=== PATIENT | female | born 1975 | race Caucasian/White ===

== ENCOUNTER 2017-02-08 17:03 | Inpatient (IN) | payer MEDICAID ==
--- NOTE | 2017-02-08 17:08 | ED Physician Chart ---
Chief Complaint/HPI - Patient Information Date Seen:: 02/08/17 Time Seen:: 17:08 Chief Complaint:: altered level of consciousness History of Present Illness:: 41-year-old female, brought in by ambulance from home with acute, constant, severe, altered level of consciousness that has been going on since approximately 30-40 minutes prior to arrival and she was discovered by a bystander at her home to be altered. Apparently patient has associated ability to only respond to painful stimulus. Patient also has associated nausea and vomiting. Reportedly she had been drinking alcohol last night. History limited due to patient's altered level of consciousness History provided by EMS and EMS run sheet Historian:: EMS Review:: Nurse's Note Reviewed, EMS run form Reviewed Review of Systems - Review of Systems Other: Complete system review otherwise unremarkable except as noted in history of present illness. Past Medical History - Past Medical History Past Medical History: No significant medical hx Family History: None Social History: Non Smoker, Alcohol, Illicit Drug Use Surgical History: None Psychiatricy History: Other (anxiety and depression) Medication: Reviewed Family Medical History - Family Member Mother History Unknown: Yes Other Medical History: pt. unable to state due to ALOC Physical Exam - Physical Examination Other:: INITIAL VITAL SIGNS: Reviewed by me GENERAL: Patient is lying on gurney. She is GCS 11, ([id number]). Patient is dry heaving. HEAD: Head is normocephalic. No evidence of trauma. No scalp or facial swelling EYES: No scleral icterus bilaterally ENT: Oropharynx is clear of exudate and erythema NECK: Supple. No meningismus. No masses. No evidence of trauma. No cervical spine bony step-offs or crepitus to palpation RESPIRATORY: No tachypnea. Clear to auscultation bilaterally. CV: Regular rate and rhythm. No murmurs, rubs, or gallops ABDOMEN: Soft, non-distended. No masses BACK: No ecchymoses. No evidence of trauma EXTREMITIES: Normal to inspection and palpation. No deformity SKIN: Warm and dry. No obvious rash. No jaundice NEUROLOGIC: Face is symmetric. Withdraws to pain in all extremities Labs/Radiology/EKG Results - Lab Results Results: Lab Results 02/08/17 Range/Units 17:31 WBC 20.0 H (4.8-10.8) Th/cmm RBC 4.58 (3.80-5.10) Mil/cmm Hgb 14.4 (11.7-15.5) gm/dL Hct 42.5 (35.0-45.0) % MCV 92.8 (81-100) fl MCH 31.5 H (27.0-31.0) pg MCHC Differential 33.9 (28.0-36.0) pg RDW 12.7 (11.5-20.0) % Plt Count 330 (150-400) Th/cmm MPV 8.1 fl - Radiology Results Results: Single AP VIEW Portable Chest X-ray was interpreted independently and contemporaneously by Enrrique Boggs MD: No cardiomegaly Normal mediastinum No lung infiltrates No pneumothorax No soft tissue or bony abnormalities CT head without contrast per radiology NAD - EKG Interpretations Comments:: 12-lead EKG Interpretation by Enrrique Boggs MD: Sinus arrhythmia with ventricular rate of 72 beats per minute Normal axis Normal intervals No acute ST or T wave changes. No obvious STEMI Assessment - Assessment General Assessment: Critical Care Time: 30 minutes Treatments/Evaluations: Close monitoring and treatment of unstable vital signs, cardiorespiratory, and neurologic status, while maintaining tight balance of fluid, respiratory, and cardiac interventions. This time includes discussing the case with the patient and the patient's family. This time does not include all procedures stated elsewhere in this record. This time also includes reviewing old records, labs and radiological studies. This time includes examining and re-examining the patient. Additionally, this time also includes arranging care with admitting and consulting physicians. Critical Care Time: 30 minutes Excludes all billable procedures: Yes This condition life threatening/high prob of deterioration: Yes ED Septic Shock - . Is Septic Shock (SBP<90, OR Lactate>4 mmol\L) present?: No Reassessment (Disposition) - Reassessment Reassessment:: 41-year-old female presents altered from home. She arrived vomiting was responsive only to pain. He did regain consciousness slowly. She complained of acute migraine headache. Apparently she was drinking alcohol yesterday. Alcohol levels are negative and the blood today. Just complains of some burning epigastric pain. Lactic acid is greater than 3 and white count is 20, 000. She is septic. There is an unknown source. CT of the head and CT of the abdomen and pelvis are unremarkable for acute findings. We did give IV fluids and IV Rocephin. Also gave IV Protonix. We also gave IV Toradol, Compazine, Benadryl, Decadron. Migraine has resolved. Patient is now no longer vomiting. Discussed the case with the admitting physician. Patient admitted for further workup and treatment. Reassessment Condition:: Unchanged - Diagnosis Diagnosis:: Severe Sepsis, unknown etiology Acute migraine, intractable, with nausea vomiting Acute gastritis - Patient Disposition Discharge/Transfer:: Acute Care w/in this hosp Admitted to:: Telemetry Admitting Medical Physician:: Eric Marrero Time:: 20:19 Condition at Disposition:: Stable
[2017-02-08] MEDS ORDERED: Sodium Chloride 0.9% 1,000 ML IV ONE ×2 (17:09→22:10)
[2017-02-08 17:42] LABS: HEMATOCRIT 42.5 % (35.0-45.0); HEMOGLOBIN 14.4 gm/dL (11.7-15.5); MEAN CELL VOLUME 92.8 fl (81-100); MEAN CORPUSCULAR HEMOGLOBIN 31.5 pg (27.0-31.0); MEAN CORPUSCULAR HGB CONC 33.9 pg (28.0-36.0); MEAN PLATELET VOLUME 8.1 fl; NEUTROPHILE ABSOLUTE 17.3 Th/cmm (1.8-8.0); PLATELET COUNT 330 Th/cmm (150-400); RED BLOOD COUNT 4.58 Mil/cmm (3.80-5.10); RED CELL DISTRIBUTION WIDTH 12.7 % (11.5-20.0)
[2017-02-08 17:55] LABS: INR 1.01 (0.5-1.4); PROTHROMBIN TIME (TEST) 10.5 SECONDS (9.5-11.5)
[2017-02-08 18:03] LABS: ALB/GLOB RATIO 1.5 (1.0-1.8); ALKALINE PHOSPHATASE 82 U/L (34-104); ANION GAP 15.1 (7.0-16.0); BILIRUBIN,TOTAL 0.7 mg/dL (0.3-1.0); BUN - UREA NITROGEN 15 mg/dL (7-25); BUN/CREATININE RATIO 21.4; CALCIUM SERUM 9.5 mg/dL (8.6-10.3); CARBON DIOXIDE 19.5 mEq/L (21.0-31.0); CHLORIDE 105 mEq/L (98-107); CREATININE - SERUM 0.7 mg/dL (0.6-1.2); GLUCOSE 132 mg/dL (70-105); POTASSIUM SERUM 3.6 mEq/L (3.5-5.1); SGOT 21 U/L (13-39); SGPT/ALT 17 U/L (7-52); SODIUM SERUM 136 mEq/L (136-145)
[2017-02-08] MEDS ORDERED: Naloxone 0.4 mg/mL 1mL Vial IVP STA (18:07)
[2017-02-08 18:09] LABS: BAND NEUTROPHILE 1 % (0-10); BASOPHIL 1 % (0-3); NEUTROPHILS 78 % (40-80); PLATELET ESTIMATE ADEQUATE (NORMAL); TOTAL CELLS COUNTED 100
[2017-02-08] MEDS ORDERED: Naloxone 0.4 mg/mL 1mL Vial ONE (18:10)
[2017-02-08] MEDS ORDERED: Dexamethasone Sodium Phos 4 mg/mL Vial IVP STA (18:23)
[2017-02-08] MEDS ORDERED: Prochlorperazine 5 mg/mL 2mL Vial IVP STA (18:23)
[2017-02-08] MEDS ORDERED: cefTRIAXone 1 GM in Sodium Chloride 0.9% 50 ML IV ONE (19:00)
[2017-02-08] MEDS ORDERED: Prochlorperazine 5 mg/mL 2mL Vial ONE (19:13)
[2017-02-08] MEDS ORDERED: Dexamethasone Sodium Phos 10 mg/mL PF Vial ONE (19:13)
[2017-02-08 19:22] LABS: URINE COLOR DARK YELLOW
[2017-02-08 19:23] LABS: URINE BILIRUBIN SMALL (NEGATIVE); URINE BLOOD NEGATIVE (NEGATIVE); URINE GLUCOSE (UA) NEGATIVE (NEGATIVE); URINE KETONE >=80 mg/dL (NEGATIVE); URINE PROTEIN 100 mg/dL (NEGATIVE); URINE UROBILINOGEN 0.2 E.U./dL (0.2 - 1.0)
[2017-02-08 19:24] LABS: URINE BACTERIA 1+ /hpf (NONE SEEN); URINE EPITHELIAL CELLS FEW /lpf (FEW); URINE RBC NONE SEEN /hpf (0-5)
[2017-02-08 19:26] LABS: AMPHETAMINE URINE NEGATIVE (NEGATIVE); BARBITURATES URINE NEGATIVE (NEGATIVE); METHADONE URINE NEGATIVE (NEGATIVE)
--- NOTE | 2017-02-08 22:32 | Admit Criteria Form ---
Admit Criteria Forms - Admit Criteria Diagnosis: SEVERE SEPSIS Clinical Indications for Admission to Inpatient Care (Place 'X' for any and all applicable criteria): Hospital admission is needed for appropriate care of the patient because of ANY ONE of the following: [X]I. Hemodynamic instability indicated by ANY ONE of the following(1)(2)(3)( 4)(5): []a. Vital sign abnormality not readily corrected by appropriate treatment within 12 to 24 hours indicated by ANY ONE of the following: []i) Tachycardia that persists despite appropriate treatment []ii) Hypotension that persists despite appropriate treatment []iii)Orthostatic vital sign changes that persist despite appropriate treatment [X]b. Vital sign abnormality that is severe indicated by ANY ONE of the following: [X]i.Inadequate perfusion indicated by ANY ONE of the following : [X]1) Lactic acidosis (greater than 2 mmol/L) []2) New abnormal capillary refill (greater than 3 seconds) []3) Reduced urine output [X]4) New altered mental status []5) Myocardial Ischemia []ii. Mean arterial pressure [A] less than 60 mm Hg []iii. Mean arterial pressure[A] less than 70 mm Hg after 30 minutes of appropriate treatment (eg, fluid resuscitation) []iv. Sustained heart rate greater than 120 beats per minute in adult []v. IV inotropic or vasopressor medication required to maintain adequate blood pressure or perfusion []II. Systemic or infectious condition causing severe symptoms or findings not responsive to emergency or observation care treatment (as appropriate) indicated by ANY ONE of the following: []a. Cardiac arrhythmias of immediate concern(1)(2)(3) []b. Severe endocrine disorder (eg, thyrotoxicosis, adrenal insufficiency)(4)(5) []c. Seizures (eg, new or recurrent)(6) []d. New-onset end organ failure or dysfunction as indicated by ANY ONE of the following: []i. Acute unexplained hypoxemia (eg, not from lung infection or chronic disease)(7)(8)(9) []ii. Acute renal failure as indicated by new onset of ANY ONE of the following(10)(11)(12)(13)(14): []1) 3-fold rise in serum creatinine from baseline []2) Serum creatinine greater than 4 mg/dL (354 micromoles/L) with acute rise greater than 0.5 mg/dL (44.2 micromoles/L) []3) Reduction of more than 75% in estimated glomerular filtration rate from baseline. []4) Estimated glomerular filtration rate less than 35 mL/min/1.73m2 ( 0.59 mL/sec/1.73m2) in child younger than 18 years. []5) Cessation of urine output indicated by ALL of the following: []A. Adequate volume status []B. Inadequate urine output as indicated by ANY ONE of the following: []a. Urine output less than 0.3 mL/kg/hr for 24 hours []b. Anuria (urine output less than 0.1 mL/kg/hr) for 12 hours []iii. Acute mental status changes(15) []iv.Acute hepatic failure (eg, plasma bilirubin greater than 4 mg/dL ( 68 micromoles/L), new INR greater than 2.0)(16)(17) []e. Unmanageable nausea and vomiting(18) []f. New-onset or uncontrolled central diabetes insipidus(19)(20) []g. Clinically significant dehydration(18)(21) []h. Hypoglycemia(22) []i. Acidosis (pH less than 7.35) or alkalosis (pH greater than 7.45)( 22)(23) []j. Toxic drug level that indicates need for specific monitoring or treatment(24)(25) []k. Severe electrolyte abnormalities indicated by ALL of the following( 1)(2)(3): []i. Electrolytes and associated findings are not as expected for patient baseline or acceptable treatment effects. []ii. Severe abnormalities indicated by ANY ONE of the following: []1) Sodium less than 130 mEq/L (mmol/L) (new) []2) Sodium less than 135 mEq/L (mmol/L) with ANY ONE of the following: []A. Uncorrectable (to near normal or chronic baseline) after trial of outpatient and emergency treatment []B. Altered mental status []C. Seizures []D. Severe medical etiology requiring inpatient management (eg , heart failure, hypovolemia) []3) Sodium greater than 155 mEq/L (mmol/L) []4) Sodium greater than 150 mEq/L (mmol/L) with ANY ONE of the following: []A. Uncorrectable (to near normal or chronic baseline) with outpatient and emergency treatment []B. Altered mental status []C. Seizures []D. Severe medical etiology (eg, hypovolemia, diabetes insipidus) []5) Potassium less than 2.5 mEq/L (mmol/L) despite outpatient and emergency treatment []6) Potassium less than 3 mEq/L (mmol/L) with ANY ONE of the following : []A. Weakness []B. Cardiac abnormality (eg, arrhythmia, conduction disturbance ) []C. Cardiac ischemia []D. Ileus []E. Ongoing medical cause requiring inpatient management (eg, acute renal wasting or SIADH) []F. Other severe symptoms []7) Potassium greater than 6.5 mEq/L (mmol/L) []8) Potassium greater than 5 mEq/L (mmol/L) with ANY ONE of the following: []A. Uncorrectable (to near normal or chronic baseline) with outpatient and emergency treatment []B. Severe ECG findings[A] []C. Acute worsening of renal failure (creatinine greater than 2.5 mg/dL (221 micromoles/L) or significant elevation for age and size) []D. Severe weakness []E. Severe medical etiology (eg, hemolysis, infection, drug overdose) []9) Calcium less than 7 mg/dL (1.75 mmol/L) despite outpatient and emergency treatment(5) []10) Calcium less than 8 mg/dL (2 mmol/L) with significant symptoms or findings (eg, altered mental status, muscle spasms, seizures , breathing difficulty, cardiac abnormality (eg, arrhythmia or conduction disturbance))(5) []11) Calcium greater than 14 mg/dL (3.5 mmol/L)(5) []12) Calcium greater than 12 mg/dL (3 mmol/L) with ANY ONE of the following(5): []A. Uncorrectable (to near normal or chronic baseline) with outpatient and emergency treatment []B. Significant dehydration or hypovolemia as indicated by ALL of the following(3)(6)(7): []a. Not resolved with initial treatments []b. Clinically significant dehydration as indicated by ANY ONE of the following: [](1) Vomiting refractory to outpatient treatment (ie, precluding oral rehydration) [](2) Inability to drink [](3) Hypernatremia or other electrolyte abnormality unable to be corrected with outpatient and emergency treatment [](4) Failure to remain hydrated with outpatient therapy [](5) Reduced urine output [](6) Hypotension [](7) Serious cause for dehydration requiring acute hospitalization ( eg, bowel obstruction, increased intracranial pressure, infectious cause) [](8) Child with ANY ONE of the following(8): [](i) Severe abdominal tenderness [](ii) Adequate care not available at home [](iii) Severe dehydration (greater than 9% loss of body weight) []C. Significant symptoms or findings (eg, altered mental status , cardiac abnormality (eg, arrhythmia, conduction disturbance), malignant etiology requiring inpatient treatment) []13) Phosphorus less than 1 mg/dL (0.32 mmol/L) []14) Phosphorus less than 1.5 mg/dL (0.48 mmol/L) with ANY ONE of the following: []A. Patient unresponsive to outpatient and emergency treatment []B. Significant symptoms or findings (eg, weakness, altered mental status, breathing difficulty, seizures, rhabdomyolysis) []15) Phosphorus greater than 10 mg/dL (3.2 mmol/L) []16) Phosphorus greater than 4.5 mg/dL (1.45 mmol/L) (new) with ANY ONE of the following: []A. Severe medical etiology (eg, crush injury, acute renal failure) []B. Associated hypocalcemia with significant findings (eg, neurologic symptoms, altered mental status, muscle spasms, seizures, breathing difficulty, cardiac abnormality (eg, arrhythmia, conduction disturbance)) []16) Magnesium less than 1 mg/dL (0.41 mmol/L) []17) Magnesium less than 1.5 mg/dL (0.62 mmol/L) with ANY ONE of the following: []A. Patient unresponsive to outpatient and emergency treatment []B. Associated hypocalcemia with significant findings (eg, altered mental status, muscle spasms, seizures, breathing difficulty, cardiac abnormality (eg, arrhythmia, conduction disturbance)) []C. Associated hypokalemia (potassium less than 3 mEq/L (mmol/L )) with risk of arrhythmia []18) Magnesium greater than 4 mEq/L (2 mmol/L) []19) Magnesium greater than 2.5 mEq/L (1.25 mmol/L) with significant symptoms or findings (eg, weakness, altered mental status, cardiac abnormality (eg, arrhythmia, conduction disturbance), breathing difficulty, severe medical etiology (eg, renal failure, hypovolemia)) []20) Uric acid greater than 20 mg/dL (1190 micromoles/L)(9) []21) Uric acid greater than 8 mg/dL (476 micromoles/L) with significant symptoms or findings of tumor lysis syndrome (eg, creatinine greater than 1.5 times upper limit of normal, cardiac abnormality (eg, arrhythmia, conduction disturbance), seizure)(9) []III. High fever or other high-risk infection situation as indicated by ANY ONE of the following(26)(27)(28): []a. Outpatient and observation care antimicrobial treatment unavailable, not effective, or not appropriate []b. Documented bacteremia []c. Temperature greater than 104.9 degrees F (40.5 degrees C) (oral) []d. Temperature greater than 103.1 degrees F (39.5 degrees C) (oral) or less than 96.8 degrees F (36 degrees C) (rectal) that does not respond to emergency treatment and observation care []IV. High-risk febrile neutropenia[A] as indicated by ANY ONE of the following(29)(30)(31)(32): []a. Profound neutropenia[B] anticipated to extend for more than 7 days []b. Hemodynamic instability []c. Hypoxemia []d. Tachypnea []e. Altered mental status []f. New-onset abdominal pain []g. New-onset vomiting or diarrhea []h. Oral or gastrointestinal mucositis that interferes with swallowing or causes severe diarrhea []i. Focal infection (eg, cellulitis, pneumonia, central line or catheter infection, perirectal abscess) []j. Renal insufficiency (eg, GFR of less than 30 mL/min/1.73m2 (0.5 mL/sec /1.73m2)). []k. Severe liver dysfunction (transaminase levels greater than 5 times normal) []l. Platelet count less than 50,000/mm3 (50 x109/L)(33) []m. Leukemia or lymphoma induction therapy []n. Leukemia not in complete remission or with evidence of disease progression []o. Bone marrow transplant patient []p. Alemtuzumab being used for therapy []q. [employer] Association for Supportive Care in Cancer (MASCC) Risk Index score of less than 21[C](33)(35). []V. Isolation required (eg, tuberculosis that requires isolation, Ebola infection)[D](36)(37)(38)(39)(40) []. Gangrene that requires treatment beyond emergency or observation level care(41)(42) []VII. Antitoxin administration and ongoing observation required (eg, tetanus, botulism)(43)(44) []. Suspected infection with rapid progression or severe symptoms as indicated by ANY ONE of the following(45): []a. Streptococcal or staphylococcal toxic shock(46) []b. Diphtheria(47) []c. Hantavirus(48) []d. Severe acute respiratory syndrome(8)(49) []e. Anthrax(50) []f. Ebola[D](36)(37)(38) []g. Necrotizing soft tissue infection(41)(42) []h. Plague(50) []i. Other suspected infection that requires care beyond emergency or observation level care []VII. Severe adverse drug or systemic toxin reaction as indicated by ANY ONE of the following(24): []a. Serotonin syndrome(51)(52) []b. Neuroleptic malignant syndrome(51)(52) []c. Cholinergic syndrome with severe symptoms (eg, bronchorrhea, weakness , mental status changes, seizures)(53) []d. Anticholinergic syndrome []e. Sympathetic syndrome with severe symptoms (eg, seizures, mental status changes, cardiac dysrhythmias) []f. Other severe adverse drug or systemic toxin reaction that remains after emergency or observation level care (as appropriate) []VIII. Allergic reaction with severe symptoms (not responsive to emergency or observation care treatment as appropriate), including ANY ONE of the following(54): []a. Airway edema (pharyngeal, epiglottic, or laryngeal edema) []b. Stridor []c. Respiratory failure []d. Bronchospasm []e. Hypotension []IX. Environmental emergency (not responsive to emergency or observation care treatment as appropriate) as indicated by ANY ONE of the following(55)(56): []a. Hyperthermia []b. Heat stroke []c. Heat exhaustion []d. Hypothermia (temperature less than 95 degrees F (35 degrees C) rectal) (57) []e. Electrocution(58) []X. Complications of transplanted organ (ie, not covered elsewhere)[E] indicated by ANY ONE of the following(59): []a. Acute graft rejection (or graft vs. host disease)[F] requiring inpatient management (eg, intravenous immunosuppression)(60)(61)(62)(63) []b. Acute failure of transplanted organ necessitating inpatient care (eg, cannot be managed in other setting) []c. Infection requiring inpatient management (eg, Hemodynamic instability, need for intravenous antimicrobial treatment)(64)(65) []d. Other complication of transplanted organ requiring inpatient management []XI. Systemic or Infectious Condition condition, symptom, or finding for which emergency and observation care have failed or are not considered appropriate. See General Criteria: Observation Care, General Admission Criteria or Pediatric General Admission Criteria guideline as appropriate. (Contents from SEVERE SEPSIS and SYSTEMIC OR INFECTIOUS CONDITION clinical indications for admission to inpatient care have been integrated in this form) The original [facility] content created by [facility] has been revised. The portions of the content which have been revised are identified through the use of italic text or in bold and [facility] has neither reviewed nor approved the modified material. All other unmodified content is copyright [facility]. Please see references footnoted in the original [facility] edition 2016 Admit Criteria Met?: Yes
--- NOTE | 2017-02-09 02:17 | Consultation ---
Consult Note - Consult Note Service Date: 02/08/17 Referring Physician: Eric Marrero Consult Note: PHYSICIAN Consultation Note: Date of Admission: 02/08/17 Purpose of Consultation: Chief Complaint:Patient RODRICK RODRÍGUEZ was admitted to [facility] Telemetry with SEPSIS, GASTRITIS, MIGRAINE. History of Present Illness: 41-year-old female, brought in by ambulance from home with acute, constant, severe, altered level of consciousness that has been going on since approximately 30-40 minutes prior to arrival and she was discovered by a bystander at her home to be altered. NOw, she is better and conscious. She is able to answer question appropriately. Patient also has associated nausea and vomiting. Reportedly she had been drinking alcohol last night. She complained of headache. over all clinically, she is getting better. Drug screen was positive for cannbinoids. CT abd and pel and brain are negative. Past Medical History: Nonsignificant. Allergies Allergy/AdvReac Type Severity Reaction Status Date / Time No Known Allergies Allergy Verified 02/08/17 19:26 Vital Signs Temp 97.7 F 02/09/17 00:00 Pulse 78 02/09/17 00:00 Resp 20 02/09/17 00:00 BP 128/74 02/09/17 00:00 Pulse Ox 98 02/09/17 00:00 Home Medication Medication Instructions Recorded Type Unobtainable [Unobtainable] 02/08/17 History Current Medications Generic Name Dose Route Start Last Admin Trade Name Freq PRN Reason Stop Dose Admin Acetaminophen 650 mg 02/08/17 22:13 Tylenol PO 04/09/17 22:12 Q6H PRN Pain (Moderate) Sodium Chloride 1,000 mls @ 100 mls/hr 02/08/17 22:10 02/08/17 22:55 Nacl 0.9% IV 02/09/17 08:09 100 mls/hr .Q10H ONE Administration Ceftriaxone Sodium 1 gm/ 50 mls @ 100 mls/hr 02/09/17 20:00 Sodium Chloride IV 04/10/17 19:59 Q24HR KAREN Review of Systems: A 12 point ROS was reviewed with the pertinent positive and negatives noted in the HPI. Physical Exam: General: WN WD. No Acute Distress HEENT: Eyes: EOMI Bilaterally, PERRLA Bilaterally, Head is normocephalic, atraumatic on inspection. Oral cavity moist. Cardio: +S1/S2 Auscultated, RRR, no murmurs/rubs/gallops noted Respiratory: Clear to Auscultate Bilaterally Abdominal: Soft, Nondistended, Nontender to palpation x 4 quadrants Genital/Urinary: Defrerred. Extremities: No Edema noted in the lower extremities Neurological: Alert and Oriented x3, Cranial Nerves II-XII intact bilaterally, Gait Steady, No Focal Deficits noted. Assessment/Plan: 1. Leukocytosis with lactic acidemia, suspect sepsis, - Sepsis w/u and antibiotics. 2. Nausea and vomiting, likely gastritis. -IVF support. Thank you Dr Marrero. Mitchell Guzman Devesh N., M.D. [id number]
[2017-02-09 05:36] LABS: % BASOPHILS 3.3 % (0.0-2.0); % EOSINOPHILS 0.1 % (0.0-5.0); % LYMPHOCYTES 6.8 % (20.0-50.0); % MONOCYTES 2.2 % (2.0-10.0); % NEUTROPHILS 87.6 % (40.0-80.0); HEMATOCRIT 37.2 % (35.0-45.0); HEMOGLOBIN 13.1 gm/dL (11.7-15.5); MEAN CELL VOLUME 91.9 fl (81-100); MEAN CORPUSCULAR HEMOGLOBIN 32.3 pg (27.0-31.0); MEAN CORPUSCULAR HGB CONC 35.2 pg (28.0-36.0); MEAN PLATELET VOLUME 8.1 fl; NEUTROPHILE ABSOLUTE 12.2 Th/cmm (1.8-8.0); PLATELET COUNT 280 Th/cmm (150-400); RED BLOOD COUNT 4.05 Mil/cmm (3.80-5.10); RED CELL DISTRIBUTION WIDTH 12.7 % (11.5-20.0)
[2017-02-09 06:04] LABS: ALB/GLOB RATIO 1.5 (1.0-1.8); ALKALINE PHOSPHATASE 71 U/L (34-104); ANION GAP 9.8 (7.0-16.0); BILIRUBIN,TOTAL 0.6 mg/dL (0.3-1.0); BUN - UREA NITROGEN 12 mg/dL (7-25); CALCIUM SERUM 8.5 mg/dL (8.6-10.3); CARBON DIOXIDE 21.8 mEq/L (21.0-31.0); CHLORIDE 106 mEq/L (98-107); CREATININE - SERUM 0.5 mg/dL (0.6-1.2); GLUCOSE 114 mg/dL (70-105); POTASSIUM SERUM 3.6 mEq/L (3.5-5.1); SGOT 17 U/L (13-39); SGPT/ALT 14 U/L (7-52); SODIUM SERUM 134 mEq/L (136-145)
--- NOTE | 2017-02-09 10:26 | Diagnostic Imaging Report ---
CHEST X-RAY: AP view INDICATION: pain COMPARISON: None FINDINGS: There is no focal consolidation or pleural effusions The heart is normal in size. The osseous structures demonstrate no acute abnormalities. IMPRESSION: No acute cardiopulmonary disease.
--- NOTE | 2017-02-09 10:45 | Diagnostic Imaging Report ---
Head CT without intravenous contrast Indication: Altered level of consciousness Comparison: None Technique: Axial images were obtained from the vertex to the skull base without IV contrast. Coronal reconstructions were made. Total DLP: 566, CTDI30.6 FINDINGS: Images of the brain obtained without contrast demonstrate no acute hemorrhage. No mass lesions identified. The ventricles and basal cisterns are patent. The wagner-white matter differentiation is preserved. There is no mass effect or midline shift. 2 mm right tentorial calcification is noted. No skull fractures identified. No soft tissue swelling. The paranasal sinuses are clear. IMPRESSION: No acute intracranial abnormality.
--- NOTE | 2017-02-09 11:06 | Diagnostic Imaging Report ---
CT abdomen and pelvis without intravenous contrast Indication: Abdominal pain, nausea and vomiting Comparison: None, Technique: Axial images were obtained from the lung bases to the bilateral proximal femurs without IV contrast. Coronal reconstructions were made. total DLP: 325, CTDI7 FINDINGS: Hypoventilatory and atelectatic changes of the lungs are noted. Evaluation of the solid organs is limited due to lack of IV contrast. No evidence of focal hepatic, splenic, pancreatic, or adrenal lesions. No evidence of hydronephrosis or nephrolithiasis. Mildly prominent uterus is seen with 3 cm right adnexal cyst. There is suggestion of nabothian cysts of the cervix. Trace free fluid of the pelvis is noted. No free air. There is mild diverticulosis. There is mild bowel wall thickening of the ascending colon. Minimal inflammatory changes are seen in this region. The appendix is not well-visualized. The osseous structures are intact. IMPRESSION: Mild diverticulosis with areas of mild bowel wall thickening of the ascending colon with minimal surrounding inflammatory change. Findings suggest mild focal diverticulitis and/or colitis. Clinical correlation and follow-up is recommended to ensure resolution.. Prominent uterus and 3 cm right adnexal cyst. Their also probable nabothian cysts at the cervix. Recommend short-term follow-up with ultrasound. Trace free fluid in the pelvis.
[2017-02-09] MEDS: Hydrocodone/APAP 10 mg/325 mg Tab PO PRN ×2 (13:04→18:34)
--- NOTE | 2017-02-09 16:54 | Internal Medicine Prog Note ---
Internal Medicine Subjective - Subjective Patient is:: awake, arousable Patient Complaints of:: headache Per staff patient has:: no adverse event Internal Medicine Objective - Results Result Diagrams: 02/09/17 05:14 02/09/17 05:14 Recent Labs: Laboratory Last Values WBC 14.0 Th/cmm (4.8-10.8) H D 02/09/17 05:14 RBC 4.05 Mil/cmm (3.80-5.10) 02/09/17 05:14 Hgb 13.1 gm/dL (11.7-15.5) 02/09/17 05:14 Hct 37.2 % (35.0-45.0) D 02/09/17 05:14 MCV 91.9 fl (81-100) 02/09/17 05:14 MCH 32.3 pg (27.0-31.0) H 02/09/17 05:14 MCHC Differential 35.2 pg (28.0-36.0) 02/09/17 05:14 RDW 12.7 % (11.5-20.0) 02/09/17 05:14 Plt Count 280 Th/cmm (150-400) 02/09/17 05:14 MPV 8.1 fl 02/09/17 05:14 Neutrophils % 87.6 % (40.0-80.0) H 02/09/17 05:14 Band Neutrophils % 1 % (0-10) 02/08/17 17:31 Lymphocytes % 6.8 % (20.0-50.0) L 02/09/17 05:14 Monocytes % 2.2 % (2.0-10.0) 02/09/17 05:14 Eosinophils % 0.1 % (0.0-5.0) 02/09/17 05:14 Basophils % 3.3 % (0.0-2.0) H 02/09/17 05:14 Neutrophils (Manual) 78 % (40-80) 02/08/17 17:31 Lymphocytes 14 % (20-50) L 02/08/17 17:31 Monocytes 6 % (2-10) 02/08/17 17:31 Basophils 1 % (0-3) 02/08/17 17:31 Platelet Estimate ADEQUATE (NORMAL) 02/08/17 17:31 PT 10.5 SECONDS (9.5-11.5) 02/08/17 17:31 INR 1.01 (0.5-1.4) 02/08/17 17:31 PTT (Actin FS) 19.8 SECONDS (26.0-38.0) L 02/08/17 17:31 Sodium 134 mEq/L (136-145) L 02/09/17 05:14 Potassium 3.6 mEq/L (3.5-5.1) 02/09/17 05:14 Chloride 106 mEq/L (98-107) 02/09/17 05:14 Carbon Dioxide 21.8 mEq/L (21.0-31.0) 02/09/17 05:14 Anion Gap 9.8 (7.0-16.0) 02/09/17 05:14 BUN 12 mg/dL (7-25) 02/09/17 05:14 Creatinine 0.5 mg/dL (0.6-1.2) L 02/09/17 05:14 Est GFR ( Amer) > 60.0 ml/min (>90) 02/09/17 05:14 Est GFR (Non-Af Amer) > 60.0 ml/min 02/09/17 05:14 BUN/Creatinine Ratio 24.0 02/09/17 05:14 Glucose 114 mg/dL (70-105) H 02/09/17 05:14 Whole Bld Lactic Acid 0.59 mmol/L (0.60-1.99) L 02/09/17 05:14 Calcium 8.5 mg/dL (8.6-10.3) L 02/09/17 05:14 Total Bilirubin 0.6 mg/dL (0.3-1.0) 02/09/17 05:14 AST 17 U/L (13-39) 02/09/17 05:14 ALT 14 U/L (7-52) 02/09/17 05:14 Alkaline Phosphatase 71 U/L (34-104) 02/09/17 05:14 Creatine Kinase 115 U/L (30-223) 02/08/17 17:31 Total Protein 6.4 gm/dL (6.0-8.3) 02/09/17 05:14 Albumin 3.8 gm/dL (3.7-5.3) 02/09/17 05:14 Globulin 2.6 gm/dL 02/09/17 05:14 Albumin/Globulin Ratio 1.5 (1.0-1.8) 02/09/17 05:14 Lipase 3 U/L (11-82) L 02/08/17 17:31 Serum , Qual NEGATIVE (NEGATIVE) 02/08/17 18:27 Urine Source CLEAN C 02/08/17 18:17 Urine Color DARK YELLOW 02/08/17 18:17 Urine Clarity SLIGHT HAZY (CLEAR) 02/08/17 18:17 Urine pH 7.0 02/08/17 18:17 Ur Specific [place] 1.020 (1.005-1.030) 02/08/17 18:17 Urine Protein 100 mg/dL (NEGATIVE) H 02/08/17 18:17 Urine Glucose (UA) NEGATIVE mg/dL (NEGATIVE) 02/08/17 18:17 Urine Ketones >=80 mg/dL (NEGATIVE) H 02/08/17 18:17 Urine Blood NEGATIVE (NEGATIVE) 02/08/17 18:17 Urine Nitrate NEGATIVE (NEGATIVE) 02/08/17 18:17 Urine Bilirubin SMALL (NEGATIVE) H 02/08/17 18:17 Urine Urobilinogen 0.2 E.U./dL (0.2 - 1.0) 02/08/17 18:17 Ur Leukocyte Esterase NEGATIVE (NEGATIVE) 02/08/17 18:17 Urine RBC NONE SEEN /hpf (0-5) 02/08/17 18:17 Urine WBC 2-5 /hpf (0-5) 02/08/17 18:17 Ur Epithelial Cells FEW /lpf (FEW) 02/08/17 18:17 Urine Bacteria 1+ /hpf (NONE SEEN) H 02/08/17 18:17 Urine Mucus FEW /lpf (FEW) 02/08/17 18:17 Salicylates < 25.0 mg/L (30.0-100.0) L 02/08/17 17:31 Urine Opiates Screen NEGATIVE (NEGATIVE) 02/08/17 18:17 Urine Methadone Screen NEGATIVE (NEGATIVE) 02/08/17 18:17 Acetaminophen < 10.0 ug/mL (10.0-30.0) L 02/08/17 17:31 Ur Barbiturates Screen NEGATIVE (NEGATIVE) 02/08/17 18:17 Ur Tricyclics Screen NEGATIVE (NEGATIVE) 02/08/17 18:17 Ur Phencyclidine Scrn NEGATIVE (NEGATIVE) 02/08/17 18:17 Amphetamines Screen NEGATIVE (NEGATIVE) 02/08/17 18:17 U Methamphetamines Scrn NEGATIVE (NEGATIVE) 02/08/17 18:17 U Benzodiazepines Scrn NEGATIVE (NEGATIVE) 02/08/17 18:17 U Cocaine Metab Screen NEGATIVE (NEGATIVE) 02/08/17 18:17 U Cannabinoids Screen POSITIVE (NEGATIVE) H 02/08/17 18:17 Ethyl Alcohol < 10 mg/dL (0-10) 02/08/17 17:31 - Physical Exam Vitals and I&O: Vital Signs Temp 98.4 F 02/09/17 16:00 Pulse 81 02/09/17 16:00 Resp 18 02/09/17 16:00 BP 106/70 02/09/17 16:00 Pulse Ox 100 02/09/17 16:00 Intake & Output 02/08/17 02/09/17 02/09/17 18:59 06:59 18:59 Intake Total 250 Balance 250 Weight (lbs) 57.153 kg Intake: Oral 250 Other: # Voids 2 Stool Characteristics Soft Soft Formed Formed Active Medications: Current Medications Acetaminophen (Tylenol) 650 mg PO Q6H PRN PRN Reason: Pain (Moderate) Stop: 04/09/17 22:12 Last Admin: 02/09/17 03:56 Dose: 650 mg Acetaminophen/Hydrocodone Bitart ([place] 10 Mg/325 Mg) 1 tab PO Q6H PRN PRN Reason: migraine Stop: 04/10/17 12:34 Last Admin: 02/09/17 13:04 Dose: 1 tab Ceftriaxone Sodium 1 gm/ (Sodium Chloride) 50 mls @ 100 mls/hr IV Q24HR KAREN Stop: 04/10/17 19:59
--- NOTE | 2017-02-09 16:59 | History and Physical ---
History of Present Illness - HPI Chief Complaint: head aches HPI: c/o nausea and vomiting head aches found to have leukocytosis and increse in lactic acid Vital Signs: Last Vital Signs Temp 98.4 F 02/09/17 16:00 Pulse 81 02/09/17 16:00 Resp 18 02/09/17 16:00 BP 106/70 02/09/17 16:00 Pulse Ox 100 02/09/17 16:00 Past Medical History Pulmonary: Report: No Pertinent Hx RECYCLING SPECIALIST: Report: No Pertinent Hx Psych: Report: No Pertinent Hx Musculoskeletal: Report: No Pertinent Hx Infectious Disease: Report: No Pertinent Hx Renal/: Report: No Pertinent Hx - Past Surgical History Past Surgical History: No pertinent Hx Family Medical History - Family Member Mother History Unknown: Yes Other Medical History: pt. unable to state due to ALOC Social History Smoke: Quit Alcohol: None Drugs: None Lives: With Family Domestic Violence: Negative - Medications Home Medications: Home Medication Medication Instructions Recorded Type Unobtainable [Unobtainable] 02/08/17 History - Allergies Allergies/Adverse Reactions: Allergies Allergy/AdvReac Type Severity Reaction Status Date / Time No Known Allergies Allergy Verified 02/08/17 19:26 Review of Systems - Review of Systems Constitutional: Report: Fever Eyes: Denies: Pain, Vision Change, Conjunctivae Inflammation, Eyelid Inflammation, Redness Respiratory: Report: Cough Cardiovascular: Report: Light Headedness Musculoskeletal: Report: Neck Pain, Shoulder Pain, Arm Pain, Back Pain Skin: Report: Other. Denies: Rash, Lesions, Arnoldo, Bruising Neurological: Report: Weakness Physical Exam - Physical Exam Cardiovascular Systems: Report: +s1/s2 noted Respiratory: Report: Clear to Auscultation of lung sidhu Extremities: Report: No pedal edema was noted on inspection Neuro/Psych: Report: CN II-XII intact - Lab Results All Lab Results last 24 hours: Laboratory Last Values WBC 14.0 Th/cmm (4.8-10.8) H D 02/09/17 05:14 RBC 4.05 Mil/cmm (3.80-5.10) 02/09/17 05:14 Hgb 13.1 gm/dL (11.7-15.5) 02/09/17 05:14 Hct 37.2 % (35.0-45.0) D 02/09/17 05:14 MCV 91.9 fl (81-100) 02/09/17 05:14 MCH 32.3 pg (27.0-31.0) H 02/09/17 05:14 MCHC Differential 35.2 pg (28.0-36.0) 02/09/17 05:14 RDW 12.7 % (11.5-20.0) 02/09/17 05:14 Plt Count 280 Th/cmm (150-400) 02/09/17 05:14 MPV 8.1 fl 02/09/17 05:14 Neutrophils % 87.6 % (40.0-80.0) H 02/09/17 05:14 Band Neutrophils % 1 % (0-10) 02/08/17 17:31 Lymphocytes % 6.8 % (20.0-50.0) L 02/09/17 05:14 Monocytes % 2.2 % (2.0-10.0) 02/09/17 05:14 Eosinophils % 0.1 % (0.0-5.0) 02/09/17 05:14 Basophils % 3.3 % (0.0-2.0) H 02/09/17 05:14 Neutrophils (Manual) 78 % (40-80) 02/08/17 17:31 Lymphocytes 14 % (20-50) L 02/08/17 17:31 Monocytes 6 % (2-10) 02/08/17 17:31 Basophils 1 % (0-3) 02/08/17 17:31 Platelet Estimate ADEQUATE (NORMAL) 02/08/17 17:31 PT 10.5 SECONDS (9.5-11.5) 02/08/17 17:31 INR 1.01 (0.5-1.4) 02/08/17 17:31 PTT (Actin FS) 19.8 SECONDS (26.0-38.0) L 02/08/17 17:31 Sodium 134 mEq/L (136-145) L 02/09/17 05:14 Potassium 3.6 mEq/L (3.5-5.1) 02/09/17 05:14 Chloride 106 mEq/L (98-107) 02/09/17 05:14 Carbon Dioxide 21.8 mEq/L (21.0-31.0) 02/09/17 05:14 Anion Gap 9.8 (7.0-16.0) 02/09/17 05:14 BUN 12 mg/dL (7-25) 02/09/17 05:14 Creatinine 0.5 mg/dL (0.6-1.2) L 02/09/17 05:14 Est GFR ( Amer) > 60.0 ml/min (>90) 02/09/17 05:14 Est GFR (Non-Af Amer) > 60.0 ml/min 02/09/17 05:14 BUN/Creatinine Ratio 24.0 02/09/17 05:14 Glucose 114 mg/dL (70-105) H 02/09/17 05:14 Whole Bld Lactic Acid 0.59 mmol/L (0.60-1.99) L 02/09/17 05:14 Calcium 8.5 mg/dL (8.6-10.3) L 02/09/17 05:14 Total Bilirubin 0.6 mg/dL (0.3-1.0) 02/09/17 05:14 AST 17 U/L (13-39) 02/09/17 05:14 ALT 14 U/L (7-52) 02/09/17 05:14 Alkaline Phosphatase 71 U/L (34-104) 02/09/17 05:14 Creatine Kinase 115 U/L (30-223) 02/08/17 17:31 Total Protein 6.4 gm/dL (6.0-8.3) 02/09/17 05:14 Albumin 3.8 gm/dL (3.7-5.3) 02/09/17 05:14 Globulin 2.6 gm/dL 02/09/17 05:14 Albumin/Globulin Ratio 1.5 (1.0-1.8) 02/09/17 05:14 Lipase 3 U/L (11-82) L 02/08/17 17:31 Serum , Qual NEGATIVE (NEGATIVE) 02/08/17 18:27 Urine Source CLEAN C 02/08/17 18:17 Urine Color DARK YELLOW 02/08/17 18:17 Urine Clarity SLIGHT HAZY (CLEAR) 02/08/17 18:17 Urine pH 7.0 02/08/17 18:17 Ur Specific [place] 1.020 (1.005-1.030) 02/08/17 18:17 Urine Protein 100 mg/dL (NEGATIVE) H 02/08/17 18:17 Urine Glucose (UA) NEGATIVE mg/dL (NEGATIVE) 02/08/17 18:17 Urine Ketones >=80 mg/dL (NEGATIVE) H 02/08/17 18:17 Urine Blood NEGATIVE (NEGATIVE) 02/08/17 18:17 Urine Nitrate NEGATIVE (NEGATIVE) 02/08/17 18:17 Urine Bilirubin SMALL (NEGATIVE) H 02/08/17 18:17 Urine Urobilinogen 0.2 E.U./dL (0.2 - 1.0) 02/08/17 18:17 Ur Leukocyte Esterase NEGATIVE (NEGATIVE) 02/08/17 18:17 Urine RBC NONE SEEN /hpf (0-5) 02/08/17 18:17 Urine WBC 2-5 /hpf (0-5) 02/08/17 18:17 Ur Epithelial Cells FEW /lpf (FEW) 02/08/17 18:17 Urine Bacteria 1+ /hpf (NONE SEEN) H 02/08/17 18:17 Urine Mucus FEW /lpf (FEW) 02/08/17 18:17 Salicylates < 25.0 mg/L (30.0-100.0) L 02/08/17 17:31 Urine Opiates Screen NEGATIVE (NEGATIVE) 02/08/17 18:17 Urine Methadone Screen NEGATIVE (NEGATIVE) 02/08/17 18:17 Acetaminophen < 10.0 ug/mL (10.0-30.0) L 02/08/17 17:31 Ur Barbiturates Screen NEGATIVE (NEGATIVE) 02/08/17 18:17 Ur Tricyclics Screen NEGATIVE (NEGATIVE) 02/08/17 18:17 Ur Phencyclidine Scrn NEGATIVE (NEGATIVE) 02/08/17 18:17 Amphetamines Screen NEGATIVE (NEGATIVE) 02/08/17 18:17 U Methamphetamines Scrn NEGATIVE (NEGATIVE) 02/08/17 18:17 U Benzodiazepines Scrn NEGATIVE (NEGATIVE) 02/08/17 18:17 U Cocaine Metab Screen NEGATIVE (NEGATIVE) 02/08/17 18:17 U Cannabinoids Screen POSITIVE (NEGATIVE) H 02/08/17 18:17 Ethyl Alcohol < 10 mg/dL (0-10) 02/08/17 17:31 Laboratory Results - last 24 hr 02/09/17 02/09/17 02/09/17 05:14 05:14 05:14 WBC 14.0 H D RBC 4.05 Hgb 13.1 Hct 37.2 D MCV 91.9 MCH 32.3 H MCHC Differential 35.2 RDW 12.7 Plt Count 280 MPV 8.1 Neutrophils % 87.6 H Lymphocytes % 6.8 L Monocytes % 2.2 Eosinophils % 0.1 Basophils % 3.3 H Sodium 134 L Potassium 3.6 Chloride 106 Carbon Dioxide 21.8 Anion Gap 9.8 BUN 12 Creatinine 0.5 L Est GFR ( Amer) > 60.0 Est GFR (Non-Af Amer) > 60.0 BUN/Creatinine Ratio 24.0 Glucose 114 H Whole Bld Lactic Acid 0.59 L Calcium 8.5 L Total Bilirubin 0.6 AST 17 ALT 14 Alkaline Phosphatase 71 Total Protein 6.4 Albumin 3.8 Globulin 2.6 Albumin/Globulin Ratio 1.5 - Assessment Assessment: head aches leukocytosis gastritis h/o mgraine - Plan Plan: antibiotis id consult
[2017-02-09] MEDS ORDERED: cefTRIAXone 1 GM in Sodium Chloride 0.9% 50 ML IV SCH (20:00)
--- NOTE | 2017-02-09 21:34 | Infectious Disease Prog Note ---
Infectious Disease Subjective - Review of Systems Service Date: 02/09/17 Subjective: Feeling better. Infectious Disease Objective - Results Result Diagrams: 02/09/17 05:14 02/09/17 05:14 Recent Labs: Laboratory Last Values WBC 14.0 Th/cmm (4.8-10.8) H D 02/09/17 05:14 RBC 4.05 Mil/cmm (3.80-5.10) 02/09/17 05:14 Hgb 13.1 gm/dL (11.7-15.5) 02/09/17 05:14 Hct 37.2 % (35.0-45.0) D 02/09/17 05:14 MCV 91.9 fl (81-100) 02/09/17 05:14 MCH 32.3 pg (27.0-31.0) H 02/09/17 05:14 MCHC Differential 35.2 pg (28.0-36.0) 02/09/17 05:14 RDW 12.7 % (11.5-20.0) 02/09/17 05:14 Plt Count 280 Th/cmm (150-400) 02/09/17 05:14 MPV 8.1 fl 02/09/17 05:14 Neutrophils % 87.6 % (40.0-80.0) H 02/09/17 05:14 Band Neutrophils % 1 % (0-10) 02/08/17 17:31 Lymphocytes % 6.8 % (20.0-50.0) L 02/09/17 05:14 Monocytes % 2.2 % (2.0-10.0) 02/09/17 05:14 Eosinophils % 0.1 % (0.0-5.0) 02/09/17 05:14 Basophils % 3.3 % (0.0-2.0) H 02/09/17 05:14 Neutrophils (Manual) 78 % (40-80) 02/08/17 17:31 Lymphocytes 14 % (20-50) L 02/08/17 17:31 Monocytes 6 % (2-10) 02/08/17 17:31 Basophils 1 % (0-3) 02/08/17 17:31 Platelet Estimate ADEQUATE (NORMAL) 02/08/17 17:31 PT 10.5 SECONDS (9.5-11.5) 02/08/17 17:31 INR 1.01 (0.5-1.4) 02/08/17 17:31 PTT (Actin FS) 19.8 SECONDS (26.0-38.0) L 02/08/17 17:31 Sodium 134 mEq/L (136-145) L 02/09/17 05:14 Potassium 3.6 mEq/L (3.5-5.1) 02/09/17 05:14 Chloride 106 mEq/L (98-107) 02/09/17 05:14 Carbon Dioxide 21.8 mEq/L (21.0-31.0) 02/09/17 05:14 Anion Gap 9.8 (7.0-16.0) 02/09/17 05:14 BUN 12 mg/dL (7-25) 02/09/17 05:14 Creatinine 0.5 mg/dL (0.6-1.2) L 02/09/17 05:14 Est GFR ( Amer) > 60.0 ml/min (>90) 02/09/17 05:14 Est GFR (Non-Af Amer) > 60.0 ml/min 02/09/17 05:14 BUN/Creatinine Ratio 24.0 02/09/17 05:14 Glucose 114 mg/dL (70-105) H 02/09/17 05:14 Whole Bld Lactic Acid 0.59 mmol/L (0.60-1.99) L 02/09/17 05:14 Calcium 8.5 mg/dL (8.6-10.3) L 02/09/17 05:14 Total Bilirubin 0.6 mg/dL (0.3-1.0) 02/09/17 05:14 AST 17 U/L (13-39) 02/09/17 05:14 ALT 14 U/L (7-52) 02/09/17 05:14 Alkaline Phosphatase 71 U/L (34-104) 02/09/17 05:14 Creatine Kinase 115 U/L (30-223) 02/08/17 17:31 Total Protein 6.4 gm/dL (6.0-8.3) 02/09/17 05:14 Albumin 3.8 gm/dL (3.7-5.3) 02/09/17 05:14 Globulin 2.6 gm/dL 02/09/17 05:14 Albumin/Globulin Ratio 1.5 (1.0-1.8) 02/09/17 05:14 Lipase 3 U/L (11-82) L 02/08/17 17:31 Serum , Qual NEGATIVE (NEGATIVE) 02/08/17 18:27 Urine Source CLEAN C 02/08/17 18:17 Urine Color DARK YELLOW 02/08/17 18:17 Urine Clarity SLIGHT HAZY (CLEAR) 02/08/17 18:17 Urine pH 7.0 02/08/17 18:17 Ur Specific [place] 1.020 (1.005-1.030) 02/08/17 18:17 Urine Protein 100 mg/dL (NEGATIVE) H 02/08/17 18:17 Urine Glucose (UA) NEGATIVE mg/dL (NEGATIVE) 02/08/17 18:17 Urine Ketones >=80 mg/dL (NEGATIVE) H 02/08/17 18:17 Urine Blood NEGATIVE (NEGATIVE) 02/08/17 18:17 Urine Nitrate NEGATIVE (NEGATIVE) 02/08/17 18:17 Urine Bilirubin SMALL (NEGATIVE) H 02/08/17 18:17 Urine Urobilinogen 0.2 E.U./dL (0.2 - 1.0) 02/08/17 18:17 Ur Leukocyte Esterase NEGATIVE (NEGATIVE) 02/08/17 18:17 Urine RBC NONE SEEN /hpf (0-5) 02/08/17 18:17 Urine WBC 2-5 /hpf (0-5) 02/08/17 18:17 Ur Epithelial Cells FEW /lpf (FEW) 02/08/17 18:17 Urine Bacteria 1+ /hpf (NONE SEEN) H 02/08/17 18:17 Urine Mucus FEW /lpf (FEW) 02/08/17 18:17 Salicylates < 25.0 mg/L (30.0-100.0) L 02/08/17 17:31 Urine Opiates Screen NEGATIVE (NEGATIVE) 02/08/17 18:17 Urine Methadone Screen NEGATIVE (NEGATIVE) 02/08/17 18:17 Acetaminophen < 10.0 ug/mL (10.0-30.0) L 02/08/17 17:31 Ur Barbiturates Screen NEGATIVE (NEGATIVE) 02/08/17 18:17 Ur Tricyclics Screen NEGATIVE (NEGATIVE) 02/08/17 18:17 Ur Phencyclidine Scrn NEGATIVE (NEGATIVE) 02/08/17 18:17 Amphetamines Screen NEGATIVE (NEGATIVE) 02/08/17 18:17 U Methamphetamines Scrn NEGATIVE (NEGATIVE) 02/08/17 18:17 U Benzodiazepines Scrn NEGATIVE (NEGATIVE) 02/08/17 18:17 U Cocaine Metab Screen NEGATIVE (NEGATIVE) 02/08/17 18:17 U Cannabinoids Screen POSITIVE (NEGATIVE) H 02/08/17 18:17 Ethyl Alcohol < 10 mg/dL (0-10) 02/08/17 17:31 - Physical Exam Vitals and I&O: Vital Signs Temp 97.6 F 02/09/17 20:00 Pulse 82 02/09/17 20:00 Resp 19 02/09/17 20:00 BP 115/79 02/09/17 20:00 Pulse Ox 97 02/09/17 20:00 Intake & Output 02/09/17 02/09/17 02/10/17 06:59 18:59 06:59 Intake Total 250 450 Balance 250 450 Weight (lbs) 57.153 kg 56.699 kg Intake: Oral 250 450 Other: # Voids 2 2 # Bowel Movements 2 Stool Characteristics Soft Soft Formed Formed Active Medications: Current Medications Acetaminophen (Tylenol) 650 mg PO Q6H PRN PRN Reason: Pain (Moderate) Stop: 04/09/17 22:12 Last Admin: 02/09/17 03:56 Dose: 650 mg Acetaminophen/Hydrocodone Bitart ([place] 10 Mg/325 Mg) 1 tab PO Q6H PRN PRN Reason: migraine Stop: 04/10/17 12:34 Last Admin: 02/09/17 18:34 Dose: 1 tab Ceftriaxone Sodium 1 gm/ (Sodium Chloride) 50 mls @ 100 mls/hr IV Q24HR KAREN Stop: 04/10/17 19:59 General: no acute distress, well developed, well nourished HEENT: atraumatic, normocephalic, PERRLA, EOMI, moist mucous membrane Neck: supple, no thyromegaly, no lymphadenopathy, no rigid Cardiovascular: S1S2, regular Lungs: clear to auscultation bilaterally, clear to percussion Abdomen: soft, no tender, no distended, no hepatomegaly, no splenomegaly, no ascites, no guarding Extremities: no cyanosis, no clubbing, no edema Neurological: awake, alert, oriented, CN 2-12 intact Skin: intact Infectious Disease Assmt/Plan - Assessment Assessment: 1. Leukocytosis with lactic acidemia, suspect sepsis, improving. - Sepsis w/u and antibiotics. 2. Nausea and vomiting, likely gastritis. -IVF support. 3. AMS improved. 4. Cannabinoid use. Dc planning in next one to two days.
[2017-02-10] MEDS: Hydrocodone/APAP 10 mg/325 mg Tab PO PRN ×3 (01:30→16:18)
[2017-02-10 05:58] LABS: % BASOPHILS 0.2 % (0.0-2.0); % EOSINOPHILS 0.4 % (0.0-5.0); % LYMPHOCYTES 26.5 % (20.0-50.0); % MONOCYTES 6.2 % (2.0-10.0); % NEUTROPHILS 66.7 % (40.0-80.0); HEMATOCRIT 35.9 % (35.0-45.0); HEMOGLOBIN 12.3 gm/dL (11.7-15.5); MEAN CORPUSCULAR HEMOGLOBIN 32.7 pg (27.0-31.0); MEAN CORPUSCULAR HGB CONC 34.4 pg (28.0-36.0); MEAN PLATELET VOLUME 8.3 fl; NEUTROPHILE ABSOLUTE 5.9 Th/cmm (1.8-8.0); PLATELET COUNT 254 Th/cmm (150-400); RED BLOOD COUNT 3.78 Mil/cmm (3.80-5.10)
[2017-02-10 06:09] LABS: WHITE BLOOD COUNT 8.7 Th/cmm (4.8-10.8)
[2017-02-10 06:17] LABS: ANION GAP 7.7 (7.0-16.0); BUN - UREA NITROGEN 11 mg/dL (7-25); CALCIUM SERUM 8.3 mg/dL (8.6-10.3); CARBON DIOXIDE 25.7 mEq/L (21.0-31.0); CHLORIDE 109 mEq/L (98-107); CREATININE - SERUM 0.5 mg/dL (0.6-1.2); GLUCOSE 99 mg/dL (70-105); POTASSIUM SERUM 3.4 mEq/L (3.5-5.1); SODIUM SERUM 139 mEq/L (136-145)
--- NOTE | 2017-02-10 12:53 | General Progress Note ---
Subjective - Review of Systems Events since last encounter: patient condition improving Objective - Results Result Diagrams: 02/10/17 05:12 02/10/17 05:12 Recent Labs: Laboratory Last Values WBC 8.7 Th/cmm (4.8-10.8) D 02/10/17 05:12 RBC 3.78 Mil/cmm (3.80-5.10) L 02/10/17 05:12 Hgb 12.3 gm/dL (11.7-15.5) 02/10/17 05:12 Hct 35.9 % (35.0-45.0) 02/10/17 05:12 MCV 95.0 fl (81-100) 02/10/17 05:12 MCH 32.7 pg (27.0-31.0) H 02/10/17 05:12 MCHC Differential 34.4 pg (28.0-36.0) 02/10/17 05:12 RDW 13.0 % (11.5-20.0) 02/10/17 05:12 Plt Count 254 Th/cmm (150-400) 02/10/17 05:12 MPV 8.3 fl 02/10/17 05:12 Neutrophils % 66.7 % (40.0-80.0) 02/10/17 05:12 Band Neutrophils % 1 % (0-10) 02/08/17 17:31 Lymphocytes % 26.5 % (20.0-50.0) 02/10/17 05:12 Monocytes % 6.2 % (2.0-10.0) 02/10/17 05:12 Eosinophils % 0.4 % (0.0-5.0) 02/10/17 05:12 Basophils % 0.2 % (0.0-2.0) 02/10/17 05:12 Neutrophils (Manual) 78 % (40-80) 02/08/17 17:31 Lymphocytes 14 % (20-50) L 02/08/17 17:31 Monocytes 6 % (2-10) 02/08/17 17:31 Basophils 1 % (0-3) 02/08/17 17:31 Platelet Estimate ADEQUATE (NORMAL) 02/08/17 17:31 PT 10.5 SECONDS (9.5-11.5) 02/08/17 17:31 INR 1.01 (0.5-1.4) 02/08/17 17:31 PTT (Actin FS) 19.8 SECONDS (26.0-38.0) L 02/08/17 17:31 Sodium 139 mEq/L (136-145) 02/10/17 05:12 Potassium 3.4 mEq/L (3.5-5.1) L 02/10/17 05:12 Chloride 109 mEq/L (98-107) H 02/10/17 05:12 Carbon Dioxide 25.7 mEq/L (21.0-31.0) 02/10/17 05:12 Anion Gap 7.7 (7.0-16.0) 02/10/17 05:12 BUN 11 mg/dL (7-25) 02/10/17 05:12 Creatinine 0.5 mg/dL (0.6-1.2) L 02/10/17 05:12 Est GFR ( Amer) > 60.0 ml/min (>90) 02/10/17 05:12 Est GFR (Non-Af Amer) > 60.0 ml/min 02/10/17 05:12 BUN/Creatinine Ratio 22.0 02/10/17 05:12 Glucose 99 mg/dL (70-105) 02/10/17 05:12 POC Glucose 141 MG/DL (70-105) H 02/08/17 17:11 Whole Bld Lactic Acid 0.59 mmol/L (0.60-1.99) L 02/09/17 05:14 Calcium 8.3 mg/dL (8.6-10.3) L 02/10/17 05:12 Total Bilirubin 0.6 mg/dL (0.3-1.0) 02/09/17 05:14 AST 17 U/L (13-39) 02/09/17 05:14 ALT 14 U/L (7-52) 02/09/17 05:14 Alkaline Phosphatase 71 U/L (34-104) 02/09/17 05:14 Creatine Kinase 115 U/L (30-223) 02/08/17 17:31 Total Protein 6.4 gm/dL (6.0-8.3) 02/09/17 05:14 Albumin 3.8 gm/dL (3.7-5.3) 07/02/17 05:14 Globulin 2.6 gm/dL 02/09/17 05:14 Albumin/Globulin Ratio 1.5 (1.0-1.8) 02/09/17 05:14 Lipase 3 U/L (11-82) L 02/08/17 17:31 Serum , Qual NEGATIVE (NEGATIVE) 02/08/17 18:27 Urine Source CLEAN C 02/08/17 18:17 Urine Color DARK YELLOW 02/08/17 18:17 Urine Clarity SLIGHT HAZY (CLEAR) 02/08/17 18:17 Urine pH 7.0 02/08/17 18:17 Ur Specific [place] 1.020 (1.005-1.030) 02/08/17 18:17 Urine Protein 100 mg/dL (NEGATIVE) H 02/08/17 18:17 Urine Glucose (UA) NEGATIVE mg/dL (NEGATIVE) 02/08/17 18:17 Urine Ketones >=80 mg/dL (NEGATIVE) H 02/08/17 18:17 Urine Blood NEGATIVE (NEGATIVE) 02/08/17 18:17 Urine Nitrate NEGATIVE (NEGATIVE) 02/08/17 18:17 Urine Bilirubin SMALL (NEGATIVE) H 02/08/17 18:17 Urine Urobilinogen 0.2 E.U./dL (0.2 - 1.0) 02/08/17 18:17 Ur Leukocyte Esterase NEGATIVE (NEGATIVE) 02/08/17 18:17 Urine RBC NONE SEEN /hpf (0-5) 02/08/17 18:17 Urine WBC 2-5 /hpf (0-5) 02/08/17 18:17 Ur Epithelial Cells FEW /lpf (FEW) 02/08/17 18:17 Urine Bacteria 1+ /hpf (NONE SEEN) H 02/08/17 18:17 Urine Mucus FEW /lpf (FEW) 02/08/17 18:17 Salicylates < 25.0 mg/L (30.0-100.0) L 02/08/17 17:31 Urine Opiates Screen NEGATIVE (NEGATIVE) 02/08/17 18:17 Urine Methadone Screen NEGATIVE (NEGATIVE) 02/08/17 18:17 Acetaminophen < 10.0 ug/mL (10.0-30.0) L 02/08/17 17:31 Ur Barbiturates Screen NEGATIVE (NEGATIVE) 02/08/17 18:17 Ur Tricyclics Screen NEGATIVE (NEGATIVE) 02/08/17 18:17 Ur Phencyclidine Scrn NEGATIVE (NEGATIVE) 02/08/17 18:17 Amphetamines Screen NEGATIVE (NEGATIVE) 02/08/17 18:17 U Methamphetamines Scrn NEGATIVE (NEGATIVE) 02/08/17 18:17 U Benzodiazepines Scrn NEGATIVE (NEGATIVE) 02/08/17 18:17 U Cocaine Metab Screen NEGATIVE (NEGATIVE) 02/08/17 18:17 U Cannabinoids Screen POSITIVE (NEGATIVE) H 02/08/17 18:17 Ethyl Alcohol < 10 mg/dL (0-10) 02/08/17 17:31 - Physical Exam Vitals and I&O: Vital Signs Temp 97.5 F 02/10/17 11:42 Pulse 68 02/10/17 11:42 Resp 18 02/10/17 11:42 BP 136/94 02/10/17 11:42 Pulse Ox 98 02/10/17 11:42 Intake & Output 02/09/17 02/10/17 02/10/17 18:59 06:59 18:59 Intake Total 450 250 Balance 450 250 Weight (lbs) 56.699 kg 60.328 kg Intake: Oral 450 250 Other: # Voids 2 3 # Bowel Movements 2 0 Stool Characteristics Soft Soft Formed Formed Active Medications: Current Medications Acetaminophen (Tylenol) 650 mg PO Q6H PRN PRN Reason: Pain (Moderate) Stop: 04/09/17 22:12 Last Admin: 02/09/17 03:56 Dose: 650 mg Acetaminophen/Hydrocodone Bitart ([place] 10 Mg/325 Mg) 1 tab PO Q6H PRN PRN Reason: migraine Stop: 04/10/17 12:34 Last Admin: 02/10/17 08:37 Dose: 1 tab Ceftriaxone Sodium 1 gm/ (Sodium Chloride) 50 mls @ 100 mls/hr IV Q24HR KAREN Stop: 04/10/17 19:59 Last Admin: 02/09/17 22:34 Dose: 100 mls/hr Sertraline HCl (Zoloft) 100 mg PO HS KAREN PRN Reason: Protocol Stop: 04/10/17 23:46 Last Admin: 02/10/17 00:27 Dose: 100 mg Trazodone HCl (Desyrel) 150 mg PO HS KAREN PRN Reason: Protocol Stop: 04/11/17 00:12 Last Admin: 02/10/17 00:23 Dose: 150 mg General: No acute distress HEENT: Atraumatic Neck: Supple Cardiovascular: Regular rate Assessment/Plan - Problem List Patient Problems: All Active Problems Leukocytosis (Acute) D72.829 Nausea & vomiting (Acute) R11.2 cannabinoid use (Acute) - Plan Plan: cpm
== END 2017-02-10 17:00 | disposition home or self-care (01) | DRG 720 ==
LOC: ER 17:03 → MSI 20:22 → TELE 20:44
PROVIDERS: ADMIT Internal Medicine; ATTEND Internal Medicine
DX: A41.9 Sepsis, unspecified organism (principal); G92 Toxic encephalopathy; F32.9 Major depressive disorder, single episode, unspecified; F41.9 Anxiety disorder, unspecified; F12.90 Cannabis use, unspecified, uncomplicated; R65.20 Severe sepsis without septic shock; G43.919 Migraine, unspecified, intractable, without status migrainosus; K29.00 Acute gastritis without bleeding; Z87.891 Personal history of nicotine dependence
CPT/HCPCS: 36415-UA; 70450-TC; 71010-TC; 80048-TC; 80053-TC; 80307; 80320-TC; 80329-TC; 81001-TC; 82550-TC; 82948-90; 83605; 83690-TC; 84703-TC; 85007-TC; 85025-TC; 85027-TC; 85610-TC; 85730-TC; 87086-90; 93005; 96375; C9113; J0696; J0780; J1200; J1885; J2405; J7030; X6614; Z7502; Z7610